=== PATIENT | female | born 1990 | race Caucasian/White ===

== ENCOUNTER 2023-01-29 06:44 | Day surgery (SDC) | payer OTHER ==
[~2023-01-29] VITALS: Ht 165.1 cm; Wt 94.8 kg
[2023-01-29] MEDS ORDERED: MIDAZOLAM HCL 5 MG/5 ML VIAL ONE (07:44)
[2023-01-29] MEDS ORDERED: MEPERIDINE 100 MG INJ. 100 MG/ML VIAL ONE (07:44)
[2023-01-29] MEDS ORDERED: SIMETHICONE 40 MG/0.6 ML ML ONE (07:44)
[2023-01-29 08:25] LABS: HCG,QUAL RESULT NEGATIVE (NEGATIVE)
[2023-01-29] MEDS ORDERED: DIPHENHYDRAMINE INJ 50 MG/ML VIAL ONE (08:50)
[2023-01-29] MEDS ORDERED: ONDANSETRON HCL 4 MG/2 ML VIAL ONE (09:58)
[2023-01-29 13:26] VITALS: O2SAT 100
[2023-01-29 17:47] VITALS: BP_SYST 130; PULSE 88; RESP 10
== END 2023-01-29 10:25 | disposition home or self-care (01) ==
LOC: SDS 06:44 → SMU 06:45 → SDS 10:25
PROVIDERS: ATTEND Internal Medicine Gastroenterology
DX: K21.9 Gastro-esophageal reflux disease without esophagitis (principal); K29.50 Unspecified chronic gastritis without bleeding; E03.9 Hypothyroidism, unspecified; R13.10 Dysphagia, unspecified; K44.9 Diaphragmatic hernia without obstruction or gangrene; J45.909 Unspecified asthma, uncomplicated; Z88.0 Allergy status to penicillin; Z79.899 Other long term (current) drug therapy
CPT/HCPCS: 43239; 99152; 87081; 84703; 36415; 88305; 88312; 88313; G0378; J1200; J2250; J2405; J2175

== ENCOUNTER 2023-08-28 05:50 | Day surgery (SDC) | payer OTHER ==
[~2023-08-28] VITALS: Ht 165.1 cm; Wt 98.0 kg
[2023-08-28 06:39] LABS: HCG,QUAL RESULT NEGATIVE (NEGATIVE)
[2023-08-28] MEDS ORDERED: BACITRACIN ZINC 15 GM TOPICAL OINTMENT TP ONE (07:55)
[2023-08-28 08:00] VITALS: O2SAT 97
[2023-08-28] MEDS ORDERED: MEPERIDINE HCL/PF 25 MG/ML DISP.SYRIN IVP PRN (09:00)
[2023-08-28] MEDS ORDERED: LABETALOL 100 MG/ 20ML VIAL IVP PRN (09:00)
[2023-08-28] MEDS ORDERED: hydrALAZINE HCL 20 MG/ML VIAL IVP PRN (09:00)
[2023-08-28] MEDS ORDERED: MIDAZOLAM HCL 2 MG/2 ML VIAL (VERSED) IVP PRN (09:00)
[2023-08-28] MEDS ORDERED: LR 1,000 ML IV SCH (09:00)
[2023-08-28] MEDS ORDERED: HYDROmorphone 1 MG/ML INJ. CARTRIDGE IVP PRN ×2 (09:00)
[2023-08-28] MEDS ORDERED: ACETAMINOPHEN I.V. 1000 MG 100 ML IV ONE (09:44)
[2023-08-28] MEDS ORDERED: HYDROcodone/ACETAMIN 5-325 MG TAB (NORCO/ VICODIN) PO PRN ×2 (12:15)
[2023-08-28 12:21] LABS: ALBUMIN 3.5 g/dL (3.4-4.8); CALCIUM 8.3 mg/dL (8.4-11.0)
[2023-08-28] MEDS ORDERED: METOCLOPRAMIDE HCL 10 MG/2 ML VIAL ONE (12:24)
[2023-08-28] MEDS: METOCLOPRAMIDE HCL 10 MG/2 ML VIAL IVP PRN (12:28)
[2023-08-28] MEDS: CALCIUM 500 MG/TAB PO ONE (14:06)
[2023-08-28] MEDS: calcitrioL 0.25 MCG CAPSULE PO ONE (14:06)
[2023-08-28 15:58] LABS: ALBUMIN 3.4 g/dL (3.4-4.8)
[2023-08-28] MEDS ORDERED: ONDANSETRON 4 MG ODT TAB ONE (16:08)
[2023-08-28] MEDS: ONDANSETRON 4 MG ODT TAB PO PRN (16:08)
[2023-08-28 16:32] VITALS: BP_SYST 116; PULSE 63; RESP 17
[2023-08-29] MEDS ORDERED: CALCIUM 500 MG/TAB PO SCH (09:00)
[2023-08-29] MEDS ORDERED: calcitrioL 0.25 MCG CAPSULE PO SCH (09:00)
== END 2023-08-28 16:24 | disposition home or self-care (01) ==
LOC: SDS 05:50 → SMU 05:50 → SDS 16:24
PROVIDERS: ATTEND Otolaryngology
DX: D44.0 Neoplasm of uncertain behavior of thyroid gland (principal); E06.5 Other chronic thyroiditis; E03.9 Hypothyroidism, unspecified; J45.909 Unspecified asthma, uncomplicated; E66.9 Obesity, unspecified; Z79.890 Hormone replacement therapy; Z79.899 Other long term (current) drug therapy; Z88.0 Allergy status to penicillin; Z68.35 Body mass index [BMI] 35.0-35.9, adult
CPT/HCPCS: 60240; 82310; 84703; 87081; 36415; 83970; 88307; 82040; J3490; Q0162; J1100; J1885; J2765; J3465; J2405; J2704; J3010; J7120; J0131

== ENCOUNTER 2023-08-30 08:56 | Emergency (ER) | payer OTHER ==
[~2023-08-30] VITALS: Ht 165.1 cm; Wt 97.5 kg
[2023-08-30 08:56] VITALS: BP_SYST 110; PULSE 83; RESP 18; TEMP 97.9; O2SAT 98
[2023-08-30 10:00] LABS: BASOPHILS % (AUTO) 0.3 % (0.0-2.0); EOSINOPHILS # (AUTO) 0.2 K/uL (0.0-0.4); EOSINOPHILS % (AUTO) 2.2 % (0.0-4.0); HEMATOCRIT 40.6 % (36-48); HEMOGLOBIN 14.2 g/dL (12.0-16.0); LYMPHOCYTES % (AUTO) 24.7 % (20.5-51.5); MEAN CORPUSCULAR HEMOGLOBIN 31 pg (27-31); MEAN CORPUSCULAR HGB CONC 35 % (32-36); MEAN CORPUSCULAR VOLUME 88 fL (79.0-98.0); MONOCYTES # (AUTO) 0.5 K/uL (0.0-1.0); MONOCYTES % (AUTO) 6.4 % (1.7-9.3); NEUTROPHILS # (AUTO) 5.4 K/uL (1.8-7.7); NEUTROPHILS % (AUTO) 66.4 % (40.0-70.0); PLATELET COUNT (AUTO) 247 K/uL (130-430); RED BLOOD CELL COUNT(AUTO) 4.61 MIL/uL (4.2-6.2); RED CELL DISTRIBUTION WIDTH 12.5 % (9.0-15.0); WHITE BLOOD COUNT (AUTO) 8.2 K/uL (4.8-10.8)
[2023-08-30 10:19] LABS: ALBUMIN 3.5 g/dL (3.4-4.8); BILIRUBIN,DIRECT 0.1 mg/dL (0.0-0.3); CALCIUM 7.8 mg/dL (8.4-11.0); CREATININE 0.74 mg/dL (0.55-1.30); POTASSIUM 3.6 mmol/L (3.5-5.1); TOTAL BILIRUBIN 0.6 mg/dL (0.0-1.0); TOTAL PROTEIN, SERUM 7.7 g/dL (6.4-8.3)
[2023-08-30] MEDS: CALCIUM CHLORIDE 1 GM/10 ML DISP.SYRIN (14 mEq Ca++/SYR) IVP ONE (10:45)
[2023-08-30 12:18] VITALS: BP_SYST 133; PULSE 60; RESP 18; TEMP 97.6; O2SAT 97
== END 2023-08-30 12:15 | disposition home or self-care (01) ==
LOC: SED 08:56
DX: E83.51 Hypocalcemia (principal); Z88.0 Allergy status to penicillin
CPT/HCPCS: 36415; 80048; 80076; 85025; 96365; 99284